=== PATIENT | female | born 1960 | race Caucasian/White ===

== ENCOUNTER 2016-11-21 10:14 | Observation (INO) ==
[2016-11-21] MEDS ORDERED: Nitroglycerin 1 INCH/GM PACKET TP ONE (10:27)
--- NOTE | 2016-11-21 10:30 | Emergency Department Note ---
Disposition Clinical Impression: Syncope Qualifiers: Syncope type: unspecified Qualified Code(s): R55 - Syncope and collapse Chest pain Qualifiers: Chest pain type: unspecified Qualified Code(s): R07.9 - Chest pain, unspecified Disposition: Admitted As Inpatient Instructions: Chest Pain (ED) Referrals: Sada Barrera CNP [Primary Care Provider] - Forms: Work/School Release, ED Satisfaction Letter Time of Disposition: 11:40 Syncope HPI - General Chief Complaint: ED General Medical Stated Complaint: diabetic emergency, found in floor Source: patient, EMS Limitations: no limitations - History of Present Illness HPI Narrative: Patient presents to the emergency department for evaluation of near syncope. She states that she was at work at [employer], she states that she began to have some tunnel vision became lightheaded and dizzy and felt floor. She denies injury from this incident. She does not think that she had a complete loss of consciousness. She denies headache, other visual changes, speech changes, motor or sensory deficits. She denies lower extremity edema or calf discomfort. Prolonged immobilization or history of DVT or PE. She states over the past several days she has been having episodes of precordial chest pressure with some discomfort in the jaw. She denies radiation or migration of the pain otherwise. She has not noted any particular exacerbating or alleviating features with regards to this pain. - Related Data Home Medications Medication Instructions Recorded Confirmed Atorvastatin [Lipitor] 10 mg PO HS 11/18/16 11/21/16 Insulin ASPART [NovoLOG] 0 unit SQ TIDWM 11/18/16 11/21/16 Insulin Glargine [Lantus] 20 unit SQ HS 11/18/16 11/21/16 Liraglutide [Victoza 2-Dayron] 1.2 mg SQ DAILY 11/18/16 11/21/16 Terazosin [Hytrin] 1 mg PO HS 11/18/16 11/21/16 Previous Rx's Medication Instructions Recorded Aspirin 81 mg PO DAILY 30 Days 12/14/15 Carvedilol [Coreg] 25 mg PO BID #60 tablet 02/24/16 Isosorbide MONOnitrate (24 HR) 60 mg PO DAILY #30 tab.er.24h 02/24/16 [Imdur] Lisinopril [Zestril] 40 mg PO DAILY #30 tablet 11/19/16 Allergies Allergy/AdvReac Type Severity Reaction Status Date / Time pepper AdvReac Severe Anaphylaxis Verified 12/14/15 05:24 Constitutional: Denies: fever, chills, night sweats Eyes: Denies: vision change ENT ED: Denies: throat pain, dysphagia Cardiovascular: Reports: chest pain, syncope. Denies: palpitations, dyspnea on exertion, orthopnea, edema, paroxysmal nocturnal dyspnea Respiratory: Denies: cough, dyspnea, wheezes, hemoptysis Gastrointestinal: Denies: abdominal pain, nausea, vomiting, diarrhea Genitourinary: Denies: urgency, dysuria, frequency, hematuria Musculoskeletal: Denies: back pain, neck pain, joint swelling, arthralgia, myalgia Integumentary: Denies: rash Neurological: Denies: headache, weakness, numbness, paresthesias, confusion, abnormal gait, vertigo Endocrine: Denies: fatigue Hematological/Lymphatic: Denies: easy bleeding Allergic/Immunologic: Denies: urticaria Past Medical History - Past Medical History Attestation: Yes The following information was validated with the patient. Source: patient Medical history: Reports: coronary artery disease, diabetes, hyperlipidemia, hypertension, myocardial infarction, renal disease Surgical history: Reports: cholecystectomy, herniorrhaphy, hysterectomy Psychiatric history: Reports: no psych history EXHIBIT SPECIALIST history: Reports: no EXHIBIT SPECIALIST history - Social History Smoking Status: Former smoker Smokeless Tobacco Status: No Alcohol use: Reports: none Drug use: Reports: none Physical Exam - General Limitations: no limitations General appearance: alert, in no apparent distress (Cooperative interactive pleasant and speaking in full sentences) - Head Head exam: atraumatic, normocephalic, normal inspection - Eye Eye exam: Present: normal appearance, PERRL, EOMI. Absent: scleral icterus, conjunctival injection, nystagmus - ENT ENT exam: normal exam, normal oropharynx, mucous membranes moist, TM's normal bilaterally - Neck Neck exam: Present: full ROM. Absent: tenderness, meningismus - Respiratory Respiratory exam: Present: normal lung sounds bilaterally - Cardiovascular Cardiovascular exam: Present: regular rate, normal rhythm, normal heart sounds - Abdominal Exam Abdominal exam: Present: soft, Non-Tender, normal bowel sounds. Absent: mass, bruit, pulsatile mass, hernia - Extremities Exam Extremities exam: Present: normal inspection, full ROM, normal capillary refill. Absent: tenderness - Expanded Lower Extremity Exam Neurovascular/Tendon exam: Present: normal capillary refill. Absent: pulse deficit, motor deficit, sensory deficit, extremity cold to touch - Back Exam Back exam: Absent: tenderness - Neurological Exam Neurological exam: Present: alert, oriented X3, CN II-XII intact. Absent: motor sensory deficit - Psychiatric Psychiatric exam: Present: normal affect, normal mood - Skin Skin exam: Present: warm, dry, intact Course Vital Signs Temperature 98.2 F 11/21/16 10:17 Pulse Rate 59 11/21/16 10:17 Respiratory Rate 20 11/21/16 10:17 Blood Pressure 192/104 11/21/16 10:17 O2 Sat by Pulse Oximetry 93 11/21/16 10:17 Temperature 98.2 F 11/21/16 11:26 Pulse Rate 58 11/21/16 11:26 Respiratory Rate 15 11/21/16 11:26 Blood Pressure 158/91 11/21/16 11:26 O2 Sat by Pulse Oximetry 93 11/21/16 11:26 Oxygen Delivery Oxygen Delivery Room Air Syncope - [facility] Narrative Medical decision making narrative: Time 1140: Patient resting comfortably and hemodynamically stable. Patient will be admitted to the hospitalist service for serial cardiac enzymes and further evaluation of her chest pain. She currently is pain-free and denies dyspnea. Clinically there are no signs of DVT or symptoms consistent with PE or history of DVT or PE. There is no evidence or symptoms concerning for aortic dissection - Medical Records Medical records reviewed: Yes I reviewed the patient's medical records. - Lab Data Lab results reviewed: Yes I reviewed the patient's lab results. Result diagrams: 11/21/16 10:47 11/21/16 10:47 Lab Results 11/21/16 11/21/16 11/21/16 Range/Units 10:47 10:47 10:47 WBC (4.3-11.1) K/mcL RBC (3.82-4.97) M/mcL Hgb (11.5-15.4) g/dL Hct (35.3-44.9) % MCV (83.0-100.0) fL MCH (28.0-33.3) pg MCHC (31.6-35.5) g/dL RDW (11.5-14.5) % Plt Count (140-400) K/mcL MPV (9.4-12.4) fL Immature Gran % (0-4) % Seg Neutrophils % % Lymphocytes % % Monocytes % % Eosinophils % % Basophils % % Neutrophils # (1.6-8.9) K/mcL Lymphocytes # (0.6-4.6) K/mcL Monocytes # (0.0-1.3) K/mcL Eosinophils # (0.0-0.6) K/mcL Basophils # (0.0-0.2) K/mcL PT 11.5 (9.4-12.1) Seconds INR 1.1 APTT 36.0 (26.0-36.0) Seconds Sodium (136-145) mEq/L Potassium (3.5-4.5) mEq/L Chloride (98-109) mEq/L Carbon Dioxide (19-29) mEq/L BUN (7-20) mg/dL Creatinine (0.57-1.11) mg/dL Est GFR ( Amer) (> 60) Est GFR (Non-Af Amer) (> 60) BUN/Creatinine Ratio (6-26) Glucose (70-99) mg/dL Calculated Osmolality (280-300) Calcium (8.6-10.8) mg/dL Total Bilirubin 1.0 (0.2-1.2) mg/dL Direct Bilirubin 0.4 (0.0-0.5) mg/dL Indirect Bilirubin 0.6 (0.0-1.2) mg/dL AST 20 (5-34) Units/L ALT 25 (0-55) Units/L Alkaline Phosphatase 63 (38-126) Units/L Troponin I (0-0.03) ng/mL B-Natriuretic Peptide 66 (0-100) pg/mL Serum Total Protein 7.5 (6.0-8.3) g/dL Albumin 3.9 (3.5-5.0) g/dL Globulin 3.6 H (2.4-3.5) g/dL Albumin/Globulin Ratio 1.1 (1.1-2.2) Lipase (8-78) Units/L 11/21/16 11/21/16 11/21/16 Range/Units 10:47 10:47 10:47 WBC 6.7 (4.3-11.1) K/mcL RBC 4.07 (3.82-4.97) M/mcL Hgb 12.7 (11.5-15.4) g/dL Hct 37.0 (35.3-44.9) % MCV 90.9 (83.0-100.0) fL MCH 31.2 (28.0-33.3) pg MCHC 34.3 (31.6-35.5) g/dL RDW 12.5 (11.5-14.5) % Plt Count 130 L (140-400) K/mcL MPV 13.0 H (9.4-12.4) fL Immature Gran % 0.2 (0-4) % Seg Neutrophils % 58.8 % Lymphocytes % 31.8 % Monocytes % 5.4 % Eosinophils % 3.2 % Basophils % 0.6 % Neutrophils # 3.9 (1.6-8.9) K/mcL Lymphocytes # 2.1 (0.6-4.6) K/mcL Monocytes # 0.4 (0.0-1.3) K/mcL Eosinophils # 0.2 (0.0-0.6) K/mcL Basophils # 0.0 (0.0-0.2) K/mcL PT (9.4-12.1) Seconds INR APTT (26.0-36.0) Seconds Sodium 142 (136-145) mEq/L Potassium 3.6 (3.5-4.5) mEq/L Chloride 110 H (98-109) mEq/L Carbon Dioxide 20 (19-29) mEq/L BUN 28 H (7-20) mg/dL Creatinine 1.15 H (0.57-1.11) mg/dL Est GFR ( Amer) 59 L (> 60) Est GFR (Non-Af Amer) 49 L (> 60) BUN/Creatinine Ratio 24 (6-26) Glucose 125 H (70-99) mg/dL Calculated Osmolality 301 H (280-300) Calcium 9.3 (8.6-10.8) mg/dL Total Bilirubin (0.2-1.2) mg/dL Direct Bilirubin (0.0-0.5) mg/dL Indirect Bilirubin (0.0-1.2) mg/dL AST (5-34) Units/L ALT (0-55) Units/L Alkaline Phosphatase (38-126) Units/L Troponin I (0-0.03) ng/mL B-Natriuretic Peptide (0-100) pg/mL Serum Total Protein (6.0-8.3) g/dL Albumin (3.5-5.0) g/dL Globulin (2.4-3.5) g/dL Albumin/Globulin Ratio (1.1-2.2) Lipase 115 H (8-78) Units/L 11/21/ Range/Units 10:47 WBC (4.3-11.1) K/mcL RBC (3.82-4.97) M/mcL Hgb (11.5-15.4) g/dL Hct (35.3-44.9) % MCV (83.0-100.0) fL MCH (28.0-33.3) pg MCHC (31.6-35.5) g/dL RDW (11.5-14.5) % Plt Count (140-400) K/mcL MPV (9.4-12.4) fL Immature Gran % (0-4) % Seg Neutrophils % % Lymphocytes % % Monocytes % % Eosinophils % % Basophils % % Neutrophils # (1.6-8.9) K/mcL Lymphocytes # (0.6-4.6) K/mcL Monocytes # (0.0-1.3) K/mcL Eosinophils # (0.0-0.6) K/mcL Basophils # (0.0-0.2) K/mcL PT (9.4-12.1) Seconds INR APTT (26.0-36.0) Seconds Sodium (136-145) mEq/L Potassium (3.5-4.5) mEq/L Chloride (98-109) mEq/L Carbon Dioxide (19-29) mEq/L BUN (7-20) mg/dL Creatinine (0.57-1.11) mg/dL Est GFR ( Amer) (> 60) Est GFR (Non-Af Amer) (> 60) BUN/Creatinine Ratio (6-26) Glucose (70-99) mg/dL Calculated Osmolality (280-300) Calcium (8.6-10.8) mg/dL Total Bilirubin (0.2-1.2) mg/dL Direct Bilirubin (0.0-0.5) mg/dL Indirect Bilirubin (0.0-1.2) mg/dL AST (5-34) Units/L ALT (0-55) Units/L Alkaline Phosphatase (38-126) Units/L Troponin I 0.02 (0-0.03) ng/mL B-Natriuretic Peptide (0-100) pg/mL Serum Total Protein (6.0-8.3) g/dL Albumin (3.5-5.0) g/dL Globulin (2.4-3.5) g/dL Albumin/Globulin Ratio (1.1-2.2) Lipase (8-78) Units/L ITS Impressions Chest X-Ray 11/21/16 10:28 IMPRESSION: No acute cardiopulmonary disease. D/ / Dylan Reese MD / Dylan Reese MD Interpreting Provider: Dylan Reese MD Head CT 11/21/16 10:28 IMPRESSION: No acute intracranial abnormality. D/ / Agustin Ruiz MD / Agustin Ruiz MD Interpreting Provider: Agustin Ruiz MD - Radiology Data Radiology results reviewed: Yes I reviewed the patient's radiology results. - EKG Data EKG attestation: Yes I reviewed and interpreted this EKG. EKG shows normal: sinus rhythm (Sinus bradycardia with a rate of 59. Nonspecific changes without evidence of acute ST segment or T-wave changes.)
[2016-11-21 10:56] LABS: Basophils % 0.6 %; Eosinophils # 0.2 K/mcL (0.0-0.6); Eosinophils % 3.2 %; Hemoglobin 12.7 g/dL (11.5-15.4); Immature Granulocytes % 0.2 % (0-4); Lymphocytes # 2.1 K/mcL (0.6-4.6); Lymphocytes % 31.8 %; Mean Corpuscular HGB Conc 34.3 g/dL (31.6-35.5); Mean Corpuscular Hemoglobin 31.2 pg (28.0-33.3); Mean Corpuscular Volume 90.9 fL (83.0-100.0); Monocytes # 0.4 K/mcL (0.0-1.3); Monocytes % 5.4 %; Neutrophils # 3.9 K/mcL (1.6-8.9); Platelet Count 130 K/mcL (140-400); Red Blood Count 4.07 M/mcL (3.82-4.97); Red Cell Distribution Width 12.5 % (11.5-14.5); Segmented Neutrophils % 58.8 %
[2016-11-21 11:00] LABS: INR 1.1; Prothrombin Time 11.5 Seconds (9.4-12.1)
[2016-11-21 11:13] LABS: Albumin 3.9 g/dL (3.5-5.0); Albumin/Globulin Ratio 1.1 (1.1-2.2); Bilirubin,Direct 0.4 mg/dL (0.0-0.5); Bilirubin,Indirect 0.6 mg/dL (0.0-1.2); Calcium 9.3 mg/dL (8.6-10.8); Globulin 3.6 g/dL (2.4-3.5); Potassium 3.6 mEq/L (3.5-4.5); Total Protein 7.5 g/dL (6.0-8.3)
[2016-11-21] MEDS ORDERED: Aspirin 81 MG TAB.CHEW PO ONE (11:32)
[2016-11-21] MEDS ORDERED: *HR* Dextrose 50 % in Water (Syg) 50 ML SYRINGE IVP PRN (14:12)
[2016-11-21] MEDS ORDERED: D5% in Water 1,000 ML IVC PRN (14:12)
[2016-11-21] MEDS ORDERED: Dextrose Gel 15 GM PO PRN ×2 (14:12)
--- NOTE | 2016-11-21 15:50 | Internal Med History&Physical ---
Date of Encounter: 11/21/16 Time of Encounter: 15:15 Assessment and Plan (1) Near syncope Current visit: Yes Status: Acute Etiology not obvious. We will check orthostatic vital signs. She has been placed on telemetry. Further workup will be done as needed. (2) HTN (hypertension) Current visit: No Status: Chronic She states she had been out of lisinopril for almost a week until it was restarted November 18 after an ER visit for tightness in her chest. We will further adjust medication doses as needed. Qualifiers: Hypertension type: essential hypertension Qualified Code(s): I10 - Essential (primary) hypertension Internal Medicine - H&P: HPI Chief complaint: Near syncope Admitted From: Home Plans for Post Hospital Care: Home History of present illness: Ms. Callahan is a 56 year old female who states while at work this morning she had a sensation of cloudiness involving her left eye and a sensation of dizziness which she describes as lightheadedness. There was no vertigo component. She did not lose consciousness but did fall to the floor with no significant injury. She states she had had chest pressure most the morning and not felt well overall for the previous 2 days. She was evaluated in emergency room and admitted to [facility] floor for ongoing care needs. 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 She reports no further syncopal or syncopal episodes since then until the events of today. She has a history of hypertension but no known DVT or pulmonary embolus. She had a heart cath at [facility] 07/15/2014 which showed LVEF 65%. The LMCA was angiographically free of disease. The LAD had a proximal 50% stenosis. The first diagonal was free of disease. RCA had 30% stenosis in the proximal portion. Other vessels showed no significant stenosis. The abdominal aorta and proximal common iliac arteries were normal on runoff. Renal arteries showed no abnormality. She had an echocardiogram 07/14/2014 which showed LVEF of 65-70%. There was moderate to severe concentric LVH with the posterior wall thickness 1.6 cm and the interventricular septum thickness 1.5 cm. Left atrial size was 3.9 cm.. There was mild diastolic dysfunction of the left ventricle with the E/A ratio of 0.8. No significant valvular abnormalities were seen. She has had carotid Doppler studies done in the past with nonstenotic plaque seen in the left ICA with the right ICA essentially normal. She reports being evaluated in emergency room November 18 for complaints of chest tightness with radiation to her neck, shoulder, and jaw. She was found to have elevated blood pressure at that time but states she had been out of lisinopril for several days. Past Med Surg Social Fam HX - Past Medical History Medical history: coronary artery disease, diabetes, hyperlipidemia, hypertension , myocardial infarction, renal disease Psychiatric history: no psych history - Past Surgical History Surgical History: cholecystectomy, herniorrhaphy, hysterectomy - Social History Smoking Status: Former smoker Smokeless Tobacco Status: No Alcohol use: none Drug use: none - Family History Father Adopted: No Living Status: Hx Family Neurologic Disorders: Yes (stroke) Mother Adopted: No Family Member Ethnicity: Non- Living Status: Hx Family Cardiac Disorders: Yes Hx Family Cancer: Yes Hx Family Endocrine Disorder: Yes Internal Medicine - H&P: Meds Aspirin 81 mg PO DAILY 30 Days 12/14/15 [Rx] Carvedilol [Coreg] 25 mg PO BID #60 tablet 02/24/16 [Rx] Isosorbide MONOnitrate (24 HR) [Imdur] 60 mg PO DAILY #30 tab.er.24h 02/24/16 [ Rx] Atorvastatin [Lipitor] 10 mg PO HS 11/18/16 [History] Insulin ASPART [NovoLOG] 0 unit SQ TIDWM 11/18/16 [History] Insulin Glargine [Lantus] 20 unit SQ HS 11/18/16 [History] Liraglutide [Victoza 2-Dayron] 1.2 mg SQ DAILY 11/18/16 [History] Terazosin [Hytrin] 1 mg PO HS 11/18/16 [History] Lisinopril [Zestril] 40 mg PO DAILY #30 tablet 11/19/16 [Rx] Allergies pepper Adverse Reaction (Severe, Verified 11/21/16 11:49) Anaphylaxis All Systems PM: A 10-system review of systems was performed and is negative for pertinent findings except as documented above in the HPI. Review of systems: Review of systems from her February 2016 hospitalization were reviewed and revised as below. Gen.: Her weight has been stable at approximately 99 kg since the February 2016 hospitalization.. Cardiovascular: As per history of present illness Respiratory: She quit smoking in 2000 after 28 years up to 2 packs per day. She has not had PFTs and does not have known chronic lung disease. GI: She denies disorders of her liver or exocrine pancreas. She has had cholecystectomy : She has CKD stage III but has not seen a continuity director. She has had no recent hematuria dysuria or kidney stones Neurologic: She denies large distribution strokes or seizures. She does have diabetic peripheral neuropathy of her feet. Endocrine: She was diagnosed with DM 2 in 2006. She has hyperlipidemia but no known thyroid disease Hematology/oncology: She denies blood disorders cancers or anemia Psychiatric: She denies anxiety depression or other mental health issues Musk skeletal: She denies arthritis gout or osteoporosis. - Constitutional Vitals: Temp Pulse Resp BP Pulse Ox 98.1 F 59 16 163/85 93 11/21/16 15:13 11/21/16 15:13 11/21/16 15:13 11/21/16 15:13 11/21/16 15:13 Exam: Gen.: She is well-developed well-nourished female who appears in no severe distress at present time HEENT: Head is atraumatic and normocephalic. Eyes: EOMI. There is no scleral icterus. Mouth: Mucosa is moist. Neck: Supple and nontender. There is no thyromegaly or adenopathy noted. Heart: Regular without murmurs gallops or ectopics. Lungs: No wheezes or crackles are heard. Abdomen: Soft and nontender. No masses or guarding are noted. Extremities: There is no cyanosis edema or clubbing noted. Dorsalis pedis and posttibial pulses are 1-2 over 2 bilaterally. Neurologic: Mental status: She is talkative and a good historian. Cranial nerves: Smile is symmetric. Forehead wrinkles bilaterally. Tongue protrudes midline. EOMI. Motor: There is no pronator drift. Cerebellar: Finger to nose is intact bilaterally. Skin: Warm and dry Internal Med - H&P Results - Labs CBC & Chem 7: 11/21/16 10:47 11/21/16 10:47
[2016-11-21] MEDS: Insulin LISPRO 300 UNITS/3 ML VIAL SQ SCH (16:54)
[2016-11-21] MEDS: 0.45 % Sodium Chloride w/KCl 20 MEQ/1,000 ML MLS IVC SCH (17:07)
[2016-11-21] MEDS ORDERED: Insulin LISPRO 300 UNITS/3 ML VIAL SQ SCH (21:00)
[2016-11-21] MEDS ORDERED: Insulin DETEMIR 100 UNIT/ML X5UNITS SQ SCH (21:00)
[2016-11-22] MEDS ORDERED: amLODIPine 5 MG TABLET PO ONE (00:58)
[2016-11-22] MEDS: 0.45 % Sodium Chloride w/KCl 20 MEQ/1,000 ML MLS IVC SCH (03:26)
[2016-11-22 06:13] LABS: Basophils % 0.3 %; Eosinophils # 0.1 K/mcL (0.0-0.6); Eosinophils % 1.5 %; Hematocrit 38.7 % (35.3-44.9); Immature Granulocytes % 0.3 % (0-4); Lymphocytes # 1.8 K/mcL (0.6-4.6); Lymphocytes % 22.9 %; Mean Corpuscular HGB Conc 33.6 g/dL (31.6-35.5); Mean Corpuscular Hemoglobin 30.9 pg (28.0-33.3); Mean Corpuscular Volume 91.9 fL (83.0-100.0); Mean Platelet Volume 13.5 fL (9.4-12.4); Monocytes # 0.4 K/mcL (0.0-1.3); Monocytes % 5.7 %; Neutrophils # 5.4 K/mcL (1.6-8.9); Platelet Count 130 K/mcL (140-400); Red Blood Count 4.21 M/mcL (3.82-4.97); Red Cell Distribution Width 12.5 % (11.5-14.5); Segmented Neutrophils % 69.3 %
[2016-11-22 06:33] LABS: BUN/Creatinine Ratio 22 (6-26); Blood Urea Nitrogen 20 mg/dL (7-20); Calcium 9.2 mg/dL (8.6-10.8); Carbon Dioxide 21 mEq/L (19-29); Chloride 111 mEq/L (98-109); Chol/HDL Ratio 3.8 (0-4.9); Cholesterol 115 mg/dL (< 200); Glucose 95 mg/dL (70-99); HDL Cholesterol 30 mg/dL (40-59); LDL Cholesterol,Calculated 52 mg/dL (0-99); Osmolality,Calculated 302 (280-300); Potassium 3.7 mEq/L (3.5-4.5); Sodium 145 mEq/L (136-145); Triglycerides 167 mg/dL (< 150); eGFR For African Americans > 60 (> 60); eGFR For Non-African Americans > 60 (> 60)
[2016-11-22 06:53] VITALS: BP 178/84
[2016-11-22] MEDS: Lisinopril 20 MG TABLET PO SCH ×2 (07:27→09:21)
[2016-11-22] MEDS ORDERED: Aspirin 81 MG TAB.CHEW PO SCH (09:00)
[2016-11-22] MEDS ORDERED: Isosorbide MONOnitrate (24 HR) 60 MG TAB.ER.24H PO SCH ×2 (09:00)
[2016-11-22] MEDS ORDERED: Lisinopril 20 MG TABLET PO SCH (09:00)
[2016-11-22] MEDS: Insulin LISPRO 300 UNITS/3 ML VIAL SQ SCH (09:22)
--- NOTE | 2016-11-22 10:15 | Discharge Summary ---
Date of Encounter: 11/22/16 Time of Encounter: 10:05 - Discharge Diagnosis (1) Near syncope Priority: Primary Status: Acute (2) HTN (hypertension) Priority: Secondary Status: Chronic Qualifiers: Hypertension type: essential hypertension Qualified Code(s): I10 - Essential (primary) hypertension - Discharge Medications Prescriptions: Isosorbide MONOnitrate (24 HR) [Imdur] 120 mg PO DAILY #60 tab.er.24h Nitroglycerin [Nitrostat] 0.4 mg SL Q5M PRN #1 vial PRN Reason: Pain Home Medications: Aspirin 81 mg PO DAILY 30 Days 12/14/15 [Rx] Carvedilol [Coreg] 25 mg PO BID #60 tablet 02/24/16 [Rx] Atorvastatin [Lipitor] 10 mg PO HS 11/18/16 [History] Insulin ASPART [NovoLOG] 0 unit SQ TIDWM 11/18/16 [History] Insulin Glargine [Lantus] 20 unit SQ HS 11/18/16 [History] Liraglutide [Victoza 2-Dayron] 1.2 mg SQ DAILY 11/18/16 [History] Terazosin [Hytrin] 1 mg PO HS 11/18/16 [History] Lisinopril [Zestril] 40 mg PO DAILY #30 tablet 11/19/16 [Rx] Isosorbide MONOnitrate (24 HR) [Imdur] 120 mg PO DAILY #60 tab.er.24h 11/22/16 [ Rx] Nitroglycerin [Nitrostat] 0.4 mg SL Q5M PRN #1 vial 11/22/16 [Rx] Allergies/Adverse Reactions: Allergies pepper Adverse Reaction (Severe, Verified 11/21/16 11:49) Anaphylaxis Date of admission: 11/21/16 13:16 Primary care physician: Sada Barrera - Patient Status Disposition: Home, Self-Care Functional capacity at discharge: independent ambulation Overall status at discharge: patient is progressing back to baseline - Discharge Instructions Follow Up With: Sada Barrera, RANDA [Primary Care Provider] - 1 week - Diet and Activity Activity: resume usual activities as tolerated Diet: advance to your usual diet Hospital course: Ms. Callahan is a 56 year old female who states while at work this morning she had a sensation of cloudiness involving her left eye and a sensation of dizziness which she describes as lightheadedness. There was no vertigo component. She did not lose consciousness but did fall to the floor with no significant injury. She states she had had chest pressure most the morning and not felt well overall for the previous 2 days. She was evaluated in emergency room and admitted to [facility] for ongoing care needs. 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 She reports no further syncopal or syncopal episodes since then until the events of today. Initial orders were written by the emergency room physician. I saw her on November 21 and performed the history and physical. She had no further episodes of syncope or near syncope. She felt back to her baseline when I saw her on November 22 and felt stable for discharge home. Orthostatic vital signs showed blood pressure decreased from 178/84 lying to 146/87 standing. I told her that she had a significant drop in pressure but her standing pressure was still slightly above desirable level. I will increase her isosorbide to 120 mg daily. Further medication dosage adjustments can be made by her PCP. IV fluids were given and her BUN and creatinine improved to 20 and 0.89 respectively on the day of discharge with estimated GFR greater than 60. Lipid profile showed total cholesterol 115 with total/HDL ratio 3.8. She will follow with her PCP within one week. She can return to work tomorrow. She also received a prescription for Nitrostat for prn use. - Time Spent with Patient Total time spent providing and/or coordinating discharge services: - Constitutional Vitals: Temp Pulse Resp BP Pulse Ox 98.1 F 68 18 178/84 95 11/22/16 06:51 11/22/16 06:55 11/22/16 06:51 11/22/16 06:55 11/22/16 06:51
--- NOTE | 2016-11-22 17:48 | Electrocardiograph Report ---
[address] [place], [place] [address] Test Date: 2016-11-21 Pat Name: Nena Callahan Department: [id number] Room: 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
== END 2016-11-22 11:04 | disposition home or self-care (01) ==
LOC: EMEROOPIK 10:14 → INPPIK 10:14
PROVIDERS: ADMIT Internal Medicine; ATTEND Internal Medicine

== ENCOUNTER 2019-07-31 13:23 | Observation (INO) ==
[2019-07-31 13:54] LABS: Basophils % 0.4 %; Eosinophils # 0.2 K/mcL (0.0-0.6); Eosinophils % 2.2 %; Hematocrit 40.8 % (35.3-44.9); Hemoglobin 13.7 g/dL (11.5-15.4); Immature Granulocytes % 0.4 % (0-4); Lymphocytes # 2.1 K/mcL (0.6-4.6); Lymphocytes % 21.8 %; Mean Corpuscular HGB Conc 33.6 g/dL (31.6-35.5); Mean Corpuscular Hemoglobin 30.6 pg (28.0-33.3); Mean Corpuscular Volume 91.3 fL (83.0-100.0); Mean Platelet Volume 12.7 fL (9.4-12.4); Monocytes # 0.6 K/mcL (0.0-1.3); Monocytes % 6.8 %; Neutrophils # 6.4 K/mcL (1.6-8.9); Platelet Count 161 K/mcL (140-400); Red Blood Count 4.47 M/mcL (3.82-4.97); Red Cell Distribution Width 12.2 % (11.5-14.5); Segmented Neutrophils % 68.4 %; White Blood Count 9.4 K/mcL (4.3-11.1)
[2019-07-31 13:59] LABS: Prothrombin Time 11.5 Seconds (9.4-12.1)
[2019-07-31 14:02] LABS: Activated Partial Thrombo Time 38.6 Seconds (26.0-36.0)
[2019-07-31 14:10] LABS: Calcium 9.5 mg/dL (8.6-10.3); Potassium 3.9 mEq/L (3.5-5.1)
[2019-07-31 14:13] LABS: Amphetamine Screen,Urine Negative ng/mL (Cutoff=1000); Barbiturate Screen,Urine Negative ng/mL (Cutoff=200); Benzodiazepines Screen,Urine Negative ng/mL (Cutoff=200); Cannabinoid Screen,Urine Negative ng/mL (Cutoff = 50); Cocaine Screen,Urine Negative ng/mL (Cutoff= 300); Opiate Screen,Urine Negative ng/mL (Cutoff=300); Phencyclidine Screen,Urine Negative ng/mL (Cutoff=25)
[2019-07-31 14:14] LABS: Troponin I 0.04 ng/mL (< 0.04)
[2019-07-31 14:19] LABS: Bilirubin,Urine Negative (Negative); Blood,Urine Negative (Negative); Clarity,Urine Clear (Clear); Color,Urine Yellow (Yellow); Glucose,Urine (UA) Normal (Normal); Ketones,Urine Negative (Negative); Leukocyte Esterase,Urine Negative (Negative); Nitrite,Urine Negative (Negative); Protein,Urine 30 mg/dL (Neg-Trace); Specific Gravity,Urine 1.015 (1.010-1.025); Urobilinogen,Urine Normal (Normal)
[2019-07-31] MEDS ORDERED: Naloxone 0.4 MG/ML INJ IVP PRN (14:19)
[2019-07-31] MEDS ORDERED: Mag Hydrox/Al Hydrox/Simeth 30 ML UDC PO PRN (14:19)
[2019-07-31] MEDS ORDERED: MOM Conc 10 ML UD.LIQ PO PRN (14:19)
[2019-07-31] MEDS ORDERED: Ondansetron 4 MG/2 ML VIAL IVP PRN (14:19)
[2019-07-31 14:22] LABS: Hyaline Casts,Urine Few per lpf (None-Few); Squamous Epithelial Cell,Urine Few per lpf (None-Few); WBC,Urine 0-3 per hpf (0-3)
[2019-07-31] MEDS ORDERED: 0.9 % Sodium Chloride 1,000 ML IVC SCH (14:30)
[2019-07-31] MEDS ORDERED: Dextrose Gel 15 GM/37.5 ML TUBE PO PRN ×2 (19:24)
[2019-07-31] MEDS ORDERED: D5% in Water 1,000 ML IVC PRN (19:24)
[2019-07-31] MEDS ORDERED: *HR* Dextrose 50 % in Water (Vial) 50 ML VIAL IVP PRN (19:24)
[2019-07-31] MEDS: Insulin LISPRO 300 UNITS/3 ML VIAL SQ SCH (21:15)
[2019-08-01 05:32] LABS: Basophils % 0.5 %; Eosinophils # 0.3 K/mcL (0.0-0.6); Hematocrit 39.3 % (35.3-44.9); Hemoglobin 13.4 g/dL (11.5-15.4); Immature Granulocytes % 0.2 % (0-4); Lymphocytes # 2.5 K/mcL (0.6-4.6); Lymphocytes % 29.8 %; Mean Corpuscular HGB Conc 34.1 g/dL (31.6-35.5); Mean Corpuscular Hemoglobin 31.2 pg (28.0-33.3); Mean Corpuscular Volume 91.4 fL (83.0-100.0); Mean Platelet Volume 12.8 fL (9.4-12.4); Monocytes # 0.6 K/mcL (0.0-1.3); Monocytes % 7.2 %; Platelet Count 164 K/mcL (140-400); Red Cell Distribution Width 12.2 % (11.5-14.5); Segmented Neutrophils % 59.3 %; White Blood Count 8.5 K/mcL (4.3-11.1)
[2019-08-01 05:52] LABS: BUN/Creatinine Ratio 28 (6-26); Blood Urea Nitrogen 27 mg/dL (6-20); Calcium 8.9 mg/dL (8.6-10.3); Carbon Dioxide 28 mEq/L (23-29); Chloride 106 mEq/L (98-107); Chol/HDL Ratio 3.5 (0-4.9); Cholesterol 108 mg/dL (< 200); Glucose 114 mg/dL (70-105); HDL Cholesterol 31 mg/dL (40-59); LDL Cholesterol,Calculated 18 mg/dL (0-99); Osmolality,Calculated 302 (280-300); Potassium 3.4 mEq/L (3.5-5.1); Sodium 143 mEq/L (136-145); Triglycerides 294 mg/dL (< 150); eGFR For African Americans > 60 (> 60); eGFR For Non-African Americans 59 (> 60)
[2019-08-01] MEDS: Insulin LISPRO 300 UNITS/3 ML VIAL SQ SCH ×2 (08:05→12:42)
[2019-08-01 09:52] LABS: Estimated Average Glucose 140 mg/dl
[2019-08-01 10:06] VITALS: BP 156/90
== END 2019-08-01 17:11 | disposition home or self-care (01) ==
LOC: EMEROOPIK 13:23 → INPPIK 14:19
PROVIDERS: ADMIT Family Medicine; ATTEND Family Medicine